=== PATIENT | female | born 1945 | race Caucasian/White ===

== ENCOUNTER 2024-06-17 22:34 | Emergency (ER) | payer OTHER ==
[~2024-06-17] VITALS: Ht 162.6 cm; Wt 68.0 kg
[2024-06-17 22:41] VITALS: O2SAT 95
[2024-06-17] MEDS: MORPHINE SULFATE 4 MG/ML INJ (FOR IV/IM USE) IV ONE (23:45)
[2024-06-18 00:30] LABS: HEMATOCRIT. 38.8 % (36.0-48.0); HEMOGLOBIN. 12.7 g/dL (12.0-16.0); MEAN CORPUSCULAR HEMOGLOBIN 33.3 pg (28.0-32.0); MEAN CORPUSCULAR HGB CONC 32.6 g/dL (31.0-37.0); MEAN CORPUSCULAR VOLUME 102.3 fL (81.0-99.0); MEAN PLATELET VOLUME 9.7 fl (7.4-10.4); PLATELET 161 x1000/uL (130-400); RED CELL DISTRIBUTION WIDTH 15.3 % (11.6-14.6); WHITE BLOOD COUNT 23.2 x1000/uL (4.5-11.0)
[2024-06-18 00:38] LABS: DIFFERENTIAL COMMENT 1
[2024-06-18 00:45] LABS: CHLORIDE 109 mEq/L (98-107); POTASSIUM 3.8 mEq/L (3.5-5.1); SODIUM 140 mEq/L (136-145)
[2024-06-18 00:46] LABS: CALCIUM 9.7 mg/dL (8.7-10.4); CARBON DIOXIDE 19 mEq/L (21-32)
[2024-06-18] MEDS: ONDANSETRON HCL 4MG/2ML INJ IV ONE (00:46)
[2024-06-18 00:51] LABS: CREATININE 0.9 mg/dL (0.6-1.0); GLUCOSE 242 mg/dL (70-105); UREA NITROGEN BLOOD 18 mg/dL (9-23)
[2024-06-18 00:53] LABS: ALANINE AMINOTRANSFERASE 17 IU/L (10-49); ALBUMIN 3.9 g/dL (3.2-4.8); ASPARTATE AMINOTRANSFERASE 24 IU/L (<34)
[2024-06-18 00:54] LABS: BILIRUBIN TOTAL 0.7 mg/dL (0.1-1.0); PROTEIN TOTAL 6.3 g/dL (6.0-8.3)
[2024-06-18 01:30] VITALS: TEMP 36.66960
[2024-06-18 02:24] VITALS: BP 140/84; PULSE 101; RESP 22; O2SAT 93
[2024-06-18] MEDS: HUMAN-LANS PROTHROMBIN CPLX (PCC) 1000 UNITS VIAL IV NR (02:51)
[2024-06-18] MEDS ORDERED: IOHEXOL-300 100 ML BOTTLE ONE (03:13)
[2024-06-18 04:46] LABS: PLATELET ESTIMATE NORMAL
== END 2024-06-18 03:34 | disposition short-term general hospital (02) ==
LOC: ER 22:34
DX: S09.90XA Unspecified injury of head, initial encounter (principal); M54.2 Cervicalgia; M25.511 Pain in right shoulder; R07.89 Other chest pain; D72.829 Elevated white blood cell count, unspecified; Z88.0 Allergy status to penicillin; Z95.0 Presence of cardiac pacemaker; V49.59XA Passenger injured in collision with other motor vehicles in traffic accident, initial encounter; Y93.89 Activity, other specified; Y92.89 Other specified places as the place of occurrence of the external cause; Y99.8 Other external cause status
CPT/HCPCS: 36415 ×2; 71045; 73030; 99291; 80053; 85025; 86850; 86900; 86901; 86920; 70450; 71260; 72125; 74177; 96365; 96375; J2405; J2270; Q9967; C9132; 36430; P9016